=== PATIENT | female | born 1985 | race Two or more races ===

== ENCOUNTER 2021-04-28 18:33 | Emergency (ER) | payer SELFPAY ==
[~2021-04-28] VITALS: Ht 162.6 cm; Wt 86.2 kg
[2021-04-28 21:12] LABS: Basophils # (auto) 0 10 ^3/uL (0-0.2); Basophils % (auto) 0.3 % (0.0-2.0); Eosinophils # (auto) 0 10 ^3/uL (0-0.8); Hemoglobin 14.8 g/dL (12.2-16.2); Lymphocytes # (auto) 0.6 10 ^3/uL (0.4-5.4); Lymphocytes % (auto) 5.6 % (10.0-50.0); Mean Corpuscular Hemoglobin 31.9 pg (28.0-32.0); Mean Corpuscular Hgb Conc. 33.6 g/dL (32.0-36.0); Mean Corpuscular Volume 95.2 fL (80.0-100.0); Monocytes # (auto) 0.6 10 ^3/uL (0-1.3); Monocytes % (auto) 6.3 % (0.0-12.0); Neutrophils # (auto) 8.8 10 ^3/uL (1.6-8.6); Neutrophils % (auto) 87.8 % (37.0-80.0); Red Blood Cells 4.62 10^6/uL (4.0-5.20)
[2021-04-28 21:27] LABS: Potassium 3.2 mmol/L (3.5-5.1)
[2021-04-28 21:34] LABS: Albumin 3.9 g/dL (3.4-5.0); BUN/Creatinine Ratio 15.2; Bilirubin, Total 1.7 mg/dL (0.2-1.0); Calcium 8.8 mg/dL (8.5-10.1); Total Protein 8.7 g/dL (6.4-8.2)
[2021-04-28] MEDS ORDERED: SODIUM CHLORIDE 0.9% 1,000 ML IV ONE (22:30)
[2021-04-28] MEDS ORDERED: ONDANSETRON HCL 4 MG/2 ML VIAL IV ONE (22:30)
[2021-04-28] MEDS ORDERED: POTASSIUM CHL 20MEQ/100ML 100 ML IV STA (23:36)
[2021-04-29] MEDS ORDERED: fentaNYL CITRATE 100 MCG/2 ML VL IV ONE (00:15)
[2021-04-29 02:00] VITALS: BP 127/87
[2021-04-29] MEDS ORDERED: ACETAMINOPHEN 500 MG TAB PO ONE (03:45)
[2021-04-29] MEDS ORDERED: POTASSIUM EFFERVESENT TAB 25 MEQ PO ONE (04:00)
== END 2021-04-29 05:10 | disposition home or self-care (01) ==
LOC: ER 18:34
DX: K29.20 Alcoholic gastritis without bleeding (principal); Z20.822 Contact with and (suspected) exposure to COVID-19
CPT/HCPCS: 36415; 74177; 76705; 80053; 83605; 83690; 84484; 84702; 85025; 87426; 93005; 96361; 96374; 96375; 99285; J2405; J3010; J3480; J7030; J7040